=== PATIENT | male | born 1990 | race Caucasian/White ===

== ENCOUNTER → 2020-02-17 | Outpatient (CLI) | payer OTHER ==
[~2020-02-17] MED LIST: FLOVENT 110.088 GM/I INH; NASONEX17 GM; PROAIR DIGIHAL90 MCG INH; ZOFRAN 4 MG TAB4 MG PO
== END ==
LOC: EROP 10:04
DX: Z20.822 Contact with and (suspected) exposure to COVID-19 (principal)
CPT/HCPCS: 87635

== ENCOUNTER 2020-03-20 20:31 | Emergency (ER) | payer OTHER ==
[2020-03-20 22:00] LABS: HEMOGLOBIN 16.4 gm/dl (14.0-17.5); RED BLOOD COUNT 5.34 M/UL (4.20-5.50); WHITE BLOOD COUNT 5.4 K/UL (4.5-11.0)
[2020-03-20 22:12] LABS: BUN/CREATININE RATIO 14 (0-10)
[2020-03-21] MEDS ORDERED: PROAIR DIGIHAL90 MCG INH (01:09)
[2020-03-21] MEDS ORDERED: NASONEX17 GM (01:09)
[2020-03-21] MEDS ORDERED: FLOVENT 110.088 GM/I INH ×2 (01:09)
[2020-03-21] MEDS ORDERED: ZOFRAN 4 MG TAB4 MG PO (01:09)
== END 2020-03-21 01:25 | disposition home or self-care (01) ==
LOC: ER1 20:31
PROVIDERS: Emergency Medicine
DX: U07.1 COVID-19 (principal)
CPT/HCPCS: 71045; 80053; 85025; 93005; 99285; U0002